=== PATIENT | female | born 1980 | race Caucasian/White ===

== ENCOUNTER 2016-12-27 20:19 | Emergency (ER) | payer MEDICAID, OTHER ==
[~2016-12-27] VITALS: Ht 172.7 cm; Wt 68.0 kg
[~2016-12-27 20:19] MED LIST: IBUP600 PO; PERI8.6T PO; PRENCAP6 PO
[2016-12-27 20:20] VITALS: BP 115/64; PULSE 95; RESP 16; TEMP 98.2; O2SAT 100
[2016-12-27] MEDS ORDERED: PRENATAL VITAMIN PO (22:08)
[2016-12-27 22:13] VITALS: BP 115/64; PULSE 99; RESP 16; O2SAT 100
--- NOTE | 2016-12-27 22:57 | PD ---
HPI Chief Complaint: Neuro Symptoms/ Deficits Time Seen by Provider: 22:49 Travel History International Travel<30 days: No Contact w/Intl Traveler<30days: No Traveled to known affect area: No History of Present Illness HPI The patient is a 36-year-old female who complains of a gradual onset biparietal headache, dizziness and blurred vision for 3 days. The patient states she is 5 weeks . She saw her access registrar and her access registrar referred her to an urgent care center which she went today but the urgent care center referred her to the emergency department. The patient denies any fever, sore throat and has a minimal nonproductive cough. She is not smoke or drink alcohol or use drugs. Her dizziness is not vertigo, it is only lightheadedness. The blurred vision does not double vision but involves seeing colors and scotomata. She had several episodes lasting a second or 2 and then 1 episode lasted for a minute. The patient is G3, P1, A1. PFSH Past Medical History Cardiovascular Problems: Yes (HYPOTENSION) Immunizations Current: Yes Tetanus Vaccination: < 5 Years Influenza Vaccination: Yes ?: : 3 Para: 1 Miscarriage: 1 : 0 Past Surgical History Tonsillectomy: Yes Social History Alcohol Use: No Tobacco Use: No Substance Use: No Allergies-Medications (Allergen,Severity, Reaction): Coded Allergies: Cortisone (Verified Allergy, Severe, Rash, 12/27/16) TOPICAL AND HEADACHE Penicillin (Verified Allergy, Severe, Rash, 12/27/16) AND HEADACHE Reported Meds & Prescriptions Reported Meds & Active Scripts Active Reported [ Vitamin] 1 Tab PO DAILY Review of Systems Except as stated in HPI: all other systems reviewed are Neg Physical Exam Narrative GENERAL: The patient is alert, oriented 3 in no apparent distress. SKIN: Warm and dry. HEAD: Atraumatic. Normocephalic. EYES: Pupils equal and round. No scleral icterus. No injection or drainage. ENT: No nasal bleeding or discharge. Mucous membranes pink and moist. NECK: Trachea midline. No JVD. CARDIOVASCULAR: Regular rate and rhythm. No murmur appreciated. RESPIRATORY: No accessory muscle use. Clear to auscultation. Breath sounds equal bilaterally. GASTROINTESTINAL: Abdomen soft, non-tender, nondistended. Hepatic and splenic margins not palpable. MUSCULOSKELETAL: No obvious deformities. No clubbing. No cyanosis. No edema. NEUROLOGICAL: Awake and alert. No obvious cranial nerve deficits. Motor grossly within normal limits. Normal speech. PSYCHIATRIC: Appropriate mood and affect; insight and judgment normal. Data Data Last Documented VS Vital Signs Date Time Temp Pulse Resp B/P Pulse Ox O2 Delivery O2 Flow Rate FiO2 12/28/16 01:55 96 17 99/51 99 Room Air 12/27/16 20:20 98.2 Orders Complete Blood Count With Diff (12/27/16 22:49) Comprehensive Metabolic Panel (12/27/16 22:49) Urinalysis - C+S If Indicated (12/27/16 22:49) Ecg Monitoring (12/27/16 22:49) Iv Access Insert/Monitor (12/27/16 22:49) Oximetry (12/27/16 22:49) Sodium Chloride 0.9% Flush (Ns Flush) (12/27/16 23:00) Mri Brain W/O Contrast (12/27/16 22:49) Beta Hcg (Quant/Titer) (12/27/16 22:49) Urine Culture (12/27/16 22:53) Labs Laboratory Tests Test 12/27/16 22:53 White Blood Count 7.2 TH/MM3 Red Blood Count 4.30 MIL/MM3 Hemoglobin 12.5 GM/DL Hematocrit 36.8 % Mean Corpuscular Volume 85.4 FL Mean Corpuscular Hemoglobin 29.0 PG Mean Corpuscular Hemoglobin 34.0 % Concent Red Cell Distribution Width 13.6 % Platelet Count 186 TH/MM3 Mean Platelet Volume 10.5 FL Neutrophils (%) (Auto) 54.6 % Lymphocytes (%) (Auto) 29.1 % Monocytes (%) (Auto) 10.7 % Eosinophils (%) (Auto) 4.9 % Basophils (%) (Auto) 0.7 % Neutrophils # (Auto) 3.9 TH/MM3 Lymphocytes # (Auto) 2.1 TH/MM3 Monocytes # (Auto) 0.8 TH/MM3 Eosinophils # (Auto) 0.3 TH/MM3 Basophils # (Auto) 0.1 TH/MM3 CBC Comment DIFF FINAL Differential Comment Urine Color YELLOW Urine Turbidity HAZY Urine pH 5.5 Urine Specific Gibson 1.021 Urine Protein NEG mg/dL Urine Glucose (UA) NEG mg/dL Urine Ketones NEG mg/dL Urine Occult Blood NEG Urine Nitrite NEG Urine Bilirubin NEG Urine Urobilinogen LESS THAN 2.0 MG/DL Urine Leukocyte Esterase TRACE Urine RBC 1 /hpf Urine WBC 1 /hpf Urine Squamous Epithelial 7 /hpf Cells Urine Bacteria RARE /hpf Urine Mucus FEW /lpf Microscopic Urinalysis Comment CATH-CULTURE IND Sodium Level 141 MEQ/L Potassium Level 3.2 MEQ/L Chloride Level 107 MEQ/L Carbon Dioxide Level 25.4 MEQ/L Anion Gap 9 MEQ/L Blood Urea Nitrogen 18 MG/DL Creatinine 0.77 MG/DL Estimat Glomerular Filtration 84 ML/MIN Rate Random Glucose 66 MG/DL Calcium Level 9.3 MG/DL Total Bilirubin 0.3 MG/DL Aspartate Amino Transf 16 U/L (AST/SGOT) Alanine Aminotransferase 23 U/L (ALT/SGPT) Alkaline Phosphatase 61 U/L Total Protein 7.1 GM/DL Albumin 3.7 GM/DL Human Chorionic Gonadotropin, 5694 MIU/ML Quant MDM Medical Decision Making Medical Screen Exam Complete: Yes Emergency Medical Condition: Yes Medical Record Reviewed: Yes Differential Diagnosis Ocular migraine, CVA, hypoglycemia, electrolyte disorder, other metabolic disorder Narrative Course The patient likely has an ocular migraine. There is no evidence of CVA on the MRI. She is to follow-up with her access registrar. Diagnosis Primary Impression: Ocular migraine Additional Instructions: As we discussed, follow-up with your access registrar. The MRI was normal and CVA is very unlikely. Med/Other Pt SpecificInfo: No Change to Meds Disposition: 01 DISCHARGE HOME Condition: Stable Naif Salcedo MD Dec 27, 2016 22:57
[2016-12-27] MEDS ORDERED: SODIUM CHLORIDE 0.9% FLUSH 10 ML FLUSH IVF PRN (23:00)
[2016-12-27 23:07] VITALS: BP 103/56; PULSE 98; RESP 16; O2SAT 100
[2016-12-27 23:27] LABS: AUTOMATED NEUTROPHIL # 3.9 TH/MM3 (1.8-7.7); BASOPHIL # 0.1 TH/MM3 (0-0.2); BASOPHIL % 0.7 % (0.0-2.0); EOSINOPHIL # 0.3 TH/MM3 (0-0.4); EOSINOPHIL % 4.9 % (0.0-4.0); HEMATOCRIT 36.8 % (35.0-46.0); HEMO FLAGS DIFF FINAL; LYMPH % 29.1 % (9.0-44.0); LYMPHOCYTE # 2.1 TH/MM3 (1.0-4.8); MEAN CELL VOLUME 85.4 FL (80.0-100.0); MONO % 10.7 % (0.0-8.0); NEUT % 54.6 % (16.0-70.0); PLATELET COUNT 186 TH/MM3 (150-450); RED CELL DISTRIBUTION WIDTH 13.6 % (11.6-17.2); WHITE BLOOD COUNT 7.2 TH/MM3 (4.0-11.0)
[2016-12-27 23:41] LABS: BACTERIA, URINE RARE /hpf; BLOOD, URINE NEG (NEG); GLUCOSE,URINE NEG (NEG); KETONE, URINE NEG (NEG); MUCUS URINE FEW /lpf (OCC); NITRITE,URINE NEG (NEG); PH, URINE 5.5 (5.0-8.5); SQUAMOUS EPITHELIAL CELL URINE 7 /hpf (0-5); URINE COLOR YELLOW (YELLW/STRAW)
[2016-12-27 23:43] LABS: COMMENT (UR) CATH-CULTURE IND; CULTURE IF INDICATED CATH CULTURE IND
[2016-12-27 23:58] LABS: ANION GAP 9 MEQ/L (5-15); AST (GOT) 16 U/L (15-37); BICARBONATE 25.4 MEQ/L (21.0-32.0); BLOOD UREA NITROGEN 18 MG/DL (7-18); CHLORIDE 107 MEQ/L (98-107); GLOMERULAR FILTRATION RATE 84 ML/MIN (>89); POTASSIUM 3.2 MEQ/L (3.5-5.1); SODIUM (NA) 141 MEQ/L (136-145)
[2016-12-28 00:15] LABS: ALKALINE PHOSPHATASE 61 U/L (45-117); ALT (GPT) 23 U/L (10-53); BETA HCG QUANT 5694 MIU/ML (0-5); TOTAL BILIRUBIN ADULT 0.3 MG/DL (0.2-1.0)
--- NOTE | 2016-12-28 00:30 | RADRPT ---
EXAM DATE/TIME: 12/27/2016 23:57 [facility] COMPARISON: No previous studies available for comparison. INDICATIONS : CVA. MEDICAL HISTORY : None. SURGICAL HISTORY : Tonsillectomy. Knee. ENCOUNTER: Initial ACUITY: 1 day PAIN SCORE: 0/10 LOCATION: cranial TECHNIQUE: Multiplanar, multisequence MRI of the brain was performed without contrast. FINDINGS: CEREBRUM: The ventricles are normal for age. No evidence of midline shift, mass lesion, hemorrhage or acute in farction. No extraaxial fluid collections are seen. The pituitary gland and suprasellar cistern are normal in configuration. WHITE MATTER: No significant signal abnormalities are seen in the white matter. POSTERIOR FOSSA: The cerebellum and brainstem are intact. The 4th ventricle is midline. The cerebellopontine angle is unremarkable. The cerebellar tonsils are normal in position. DIFFUSION IMAGING: No focal areas of restricted diffusion are seen. No evidence of acute infarction. EXTRACRANIAL: The visualized portions of the orbits and paranasal sinuses are unremarkable. CONCLUSION: Normal examination. Fermin Macias Jr., MD on December 28, 2016 at 0:27 Board Certified Radiologist. This report was verified electronically.
[2016-12-28 00:43] VITALS: BP 96/58; PULSE 105; RESP 16; O2SAT 100
[2016-12-28 01:55] VITALS: BP 99/51; PULSE 96; RESP 17; O2SAT 99
[2016-12-28] MEDS ORDERED: CALNTAB PO (22:44)
== END 2016-12-28 03:18 | disposition home or self-care (01) ==
LOC: NEPC 20:19
DX: G43.B0 Ophthalmoplegic migraine, not intractable (principal); B96.89 Other specified bacterial agents as the cause of diseases classified elsewhere; Z3A.01 Less than 8 weeks gestation of pregnancy
CPT/HCPCS: 70551; 80053; 81001; 84702; 85025; 87086

== ENCOUNTER 2017-03-25 13:34 | Emergency (ER) | payer SELFPAY ==
[~2017-03-25 13:34] MED LIST changes: +CALNTAB PO; -IBUP600 PO; -PERI8.6T PO; -PRENCAP6 PO
[2017-03-25 15:09] LABS: BACTERIA, URINE OCC /hpf; BLOOD, URINE NEG (NEG); COMMENT (UR) CULT NOT INDICATED; CULTURE IF INDICATED CULT NOT INDICATED; GLUCOSE,URINE NEG (NEG); KETONE, URINE NEG (NEG); NITRITE,URINE NEG (NEG); SQUAMOUS EPITHELIAL CELL URINE 9 /hpf (0-5); URINE COLOR LIGHT-YELLOW (YELLW/STRAW)
--- NOTE | 2017-03-25 15:37 | PD ---
HPI Chief Complaint Abdominal pain Date Seen: Mar 25, 2017 (Libia Luz MD R2) Travel History International Travel<30 Days: No Contact w/Intl Traveler<30Days: No (Libia Luz MD R2) History of Present Illness HPI Patient is a 36 year old at 17-5/7 weeks gestation who presents today for abdominal pain. The pain started this morning and felt like contractions that were occurring q3-4minutes. The pain has significantly decreased since her arrival in the ED. She denies any vaginal bleeding or discharge. No gush or leaking of fluid. Positive movement. care with Dary Mcgregor. ( Libia Luz MD R2) History Past Medical History Medical History: Denies Significant Hx (Libia Luz MD R2) Obstetric History Obstetric History at full term Spontaneous at 12 weeks gestation (Libia Luz MD R2) Past Surgical History Narrative Surgical Tonsillectomy L knee surgery (Libia Luz MD R2) Family History Narrative Family History Father with prostate cancer (Libia Luz MD R2) Social History Alcohol Use: No Tobacco Use: No Substance Abuse: No (Libia Luz MD R2) Allergies-Medications (Allergen,Severity, Reaction): Coded Allergies: Cortisone (Verified Allergy, Severe, Rash, 12/27/16) TOPICAL AND HEADACHE Penicillin (Verified Allergy, Severe, Rash, 12/27/16) AND HEADACHE Home Meds Reported Medications Vitamin (Calna)1 Tab Tab1 Tab PO DAILY 12/28/16 Review of Systems Except as stated in HPI: all other systems reviewed are Neg General / Constitutional: No: Fever, Chills Eyes: No: Blurred Vision, Visual changes HENT: No: Headaches Cardiovascular: No: Chest Pain or Discomfort Respiratory: No: Short of Breath Gastrointestinal: Abdominal Pain, No: Nausea, Loss of Appetite Genitourinary: No: Pelvic Pain, Discharge, Vaginal Bleeding Musculoskeletal: No: Edema Psychiatric: No: Substance Abuse (Libia Luz MD R2) Physical Exam Narrative GENERAL: Well-nourished, well-developed patient. SKIN: Warm and dry. HEAD: Normocephalic and atraumatic. EYES: No scleral icterus. No injection or drainage. ENT: No nasal drainage noted. Mucous membranes pink. Airway patent. NECK: Supple, trachea midline. No JVD. CARDIOVASCULAR: Regular rate and rhythm without murmurs, gallops, or rubs. RESPIRATORY: Breath sounds equal bilaterally. No accessory muscle use. ABDOMEN/GI: Abdomen soft, mildly tender to palpation in LLQ, bowel sounds present, no rebound, no guarding Gravid to 17 weeks size GENITOURINARY: FHT's: 160's EXTREMITIES: No cyanosis or edema. BACK: Nontender without obvious deformity. No CVA tenderness. NEUROLOGICAL: Awake and alert. Motor and sensory grossly within normal limits. Normal speech. (Libia Luz MD R2) Data Data Vital Signs Reviewed: Yes Orders Vital Signs (Adult) .ON ADMISSION (03/25/17 13:56) ^ Labor Status (03/25/17 13:56) Urinalysis - C+S If Indicated (03/25/17 13:56) Labs Laboratory Tests Test 03/25/17 13:50 Urine Color LIGHT-YELLOW Urine Turbidity HAZY Urine pH 6.0 Urine Specific [place] 1.005 Urine Protein NEG Urine Glucose (UA) NEG Urine Ketones NEG Urine Occult Blood NEG Urine Nitrite NEG Urine Bilirubin NEG Urine Urobilinogen LESS THAN 2.0 Urine Leukocyte Esterase NEG Urine RBC LESS THAN 1 Urine WBC 1 Urine Squamous Epithelial 9 Cells Urine Bacteria OCC Microscopic Urinalysis Comment CULT NOT INDICATED (Libia Luz MD R2) MDM Medical Record Reviewed: Yes Narrative Course / MDM 36 year old at 17-5/7 weeks gestation. 1. IUP- FHT reassuring. 2. Abdominal pain- round ligament vs acute cystitis, will obtain UA. dw Dr. Michelle Addendum: UA wnl Pain improving, likely secondary to round ligament pain. Discharge to home. Follow-up with Dary Mcgregor. (Libia Luz MD R2) Diagnosis Diagnosis: Primary Impression: Round ligament pain Additional Impression: 17 weeks gestation of Disposition: DISCHARGE HOME Condition: Stable Collaborating MD Comments Agree with diagnosis and management. (Tayla Michelle MD) Libia Luz MD R2 Mar 25, 2017 15:37 Tayla Michelle MD Mar 26, 2017 08:31
== END 2017-03-25 15:52 | disposition home or self-care (01) ==
LOC: HOBED 13:34
DX: O26.892 Other specified pregnancy related conditions, second trimester (principal); R10.2 Pelvic and perineal pain; Z3A.17 17 weeks gestation of pregnancy
CPT/HCPCS: 81001; 99282

== ENCOUNTER 2017-04-29 11:43 | Emergency (ER) | payer SELFPAY ==
[~2017-04-29] VITALS: Ht 162.6 cm; Wt 76.2 kg
--- NOTE | 2017-04-29 12:49 | PD ---
HPI Chief Complaint Abdominal pain Date Seen: Apr 29, 2017 Time Seen: 12:15 Travel History International Travel<30 Days: No Contact w/Intl Traveler<30Days: No Known Affected Area: No History of Present Illness HPI Patient is a 36 y/o at 22 weeks and 5 days who presents to OB triage complaining of crampy abdominal pain x1 day. She states that she experienced a severe cramp x 5 min earlier today; now the pain comes and goes. The pain is irregular. She has never experienced this pain before. She denies vaginal bleeding and gush of fluid. She denies nausea/vomiting. She endorses movement. She denies changes in urination; denies increased frequency, burning/ pain with urination and blood in urine. Patient has been told that she has low-laying placenta. She has had a repeat US (3 weeks ago) since but no comment was made about location of placenta. She has received regular care. She denies any complications during this . Para: 1 : 3 Miscarriage: 1 (Passed naturally ) History Past Medical History Medical History: Denies Significant Hx Obstetric History Obstetric History G1 miscarriage, passed naturally G2 vaginal; full-term; daughter 1 1/2 years old G3 current; no complications Past Surgical History Narrative Surgical Left knee Tonsillectomy Family History Family History: Negative Social History Alcohol Use: No Tobacco Use: No (quit x5 years ago; used to smoke 1 pack/day x 10 years ) Substance Abuse: No Allergies-Medications (Allergen,Severity, Reaction): Coded Allergies: Cortisone (Verified Allergy, Severe, Rash, 04/29/17) TOPICAL AND HEADACHE Penicillin (Verified Allergy, Severe, Rash, 04/29/17) AND HEADACHE Home Meds Reported Medications Vitamin (Calna)1 Tab Tab1 Tab PO DAILY 12/28/16 Review of Systems General / Constitutional: No: Fever, Chills HENT: No: Headaches Cardiovascular: No: Irregular Rhythm, Chest Pain or Discomfort, Palpitations, Edema Respiratory: No: Short of Breath Gastrointestinal: Abdominal Pain, No: Nausea, Vomiting Genitourinary: No: Urgency, Frequency, Hematuria Musculoskeletal: No: Weakness Physical Exam Narrative GENERAL: Well-nourished, well-developed patient. SKIN: Warm and dry. HEAD: Normocephalic and atraumatic. EYES: No scleral icterus. No injection or drainage. ENT: No nasal drainage noted. Mucous membranes pink. Airway patent. NECK: Supple, trachea midline. No JVD. CARDIOVASCULAR: Regular rate and rhythm without murmurs, gallops, or rubs. RESPIRATORY: Breath sounds equal bilaterally. No accessory muscle use. ABDOMEN/GI: Abdomen soft, non-tender, bowel sounds present, no rebound, no guarding Gravid to 22 weeks size GENITOURINARY: External Genitalia: intact and normal in appearance Cervix: Posterior Dilatation: 0 Effacement: 0 Membranes: Intact Uterine Contractions: None FHT's: Category: 1 Baseline: 140 Reactive: Reactive Variability: Moderate Decels: None EXTREMITIES: No cyanosis or edema. BACK: Nontender without obvious deformity. No CVA tenderness. NEUROLOGICAL: Awake and alert. Motor and sensory grossly within normal limits. Five out of 5 muscle strength in all muscle groups. Normal speech. Data Data Vital Signs Reviewed: Yes Orders Vital Signs (Adult) .ON ADMISSION (04/29/17 12:32) ^ Labor Status (04/29/17 12:32) Urinalysis - C+S If Indicated (04/29/17 12:32) MDM Medical Record Reviewed: Yes Plan Patient is a 36 y/o at 22 weeks and 5 days who presents to OB triage complaining of crampy abdominal pain x1 day. * Urinalysis pending at this time. We will treat the urine according to findings. Will call patient with results and plan for management. * Be discharged home to bedrest use a heating pad or hot bath, by mouth Tylenol when necessary d/w Dr. Oconnell, Attending Diagnosis Diagnosis: Primary Impression: Abdominal pain Disposition: DISCHARGE HOME Condition: Good Brandy Cabrales MD R1 Apr 29, 2017 12:49
--- NOTE | 2017-04-29 13:03 | PD ---
History of Present Illness Date Seen: Apr 29, 2017 History of Present Illness Patient is 36-year-old white female at 22 weeks patient Dary Mcgregor presents complaining of abdominal pain earlier today. Prior to that She was fine has been good. Denies bleeding or ruptured membranes. Baby is active. heart rates within normal limits for 22 weeks no contractions seen. Patient's cervix is closed and posterior. Urinalysis negative Be discharged home to bedrest use a heating pad or hot bath, by mouth Tylenol when necessary Nilson Oconnell II, MD Apr 29, 2017 13:03 Nilson Oconnell II, MD Apr 29, 2017 13:03
[2017-04-29 13:34] LABS: BACTERIA, URINE RARE /hpf; BLOOD, URINE NEG (NEG); COMMENT (UR) CULT NOT INDICATED; CULTURE IF INDICATED CULT NOT INDICATED; GLUCOSE,URINE NEG (NEG); KETONE, URINE NEG (NEG); NITRITE,URINE NEG (NEG); SQUAMOUS EPITHELIAL CELL URINE 5 /hpf (0-5); URINE COLOR LIGHT-YELLOW (YELLW/STRAW)
== END 2017-04-29 16:38 | disposition home or self-care (01) ==
LOC: HOBED 11:43
DX: O26.892 Other specified pregnancy related conditions, second trimester (principal); R10.9 Unspecified abdominal pain; Z3A.22 22 weeks gestation of pregnancy; Z88.0 Allergy status to penicillin; Z87.891 Personal history of nicotine dependence
CPT/HCPCS: 81001; 99284

== ENCOUNTER 2017-07-19 16:27 | Emergency (ER) | payer SELFPAY ==
--- NOTE | 2017-07-19 17:08 | PD ---
HPI Chief Complaint Right lower quadrant abdominal pain Date Seen: Jul 19, 2017 Time Seen: 17:04 Travel History International Travel<30 Days: No Contact w/Intl Traveler<30Days: No Known Affected Area: No History of Present Illness HPI 37-year-old who is at 34 weeks 2 days complains of right lower quadrant pain. Patient has had intermittent left lower quadrant pain for 2 weeks but this morning that she started experiencing pain in the right lower quadrant. Patient denies contractions, vaginal bleeding, vaginal discharge. Patient is seeing Dary Mcgregor for care and denies any complications. Patient has had a previous spontaneous vaginal delivery at term. Weeks Gestation: 34 Para: 1 : 3 Miscarriage: 1 History Obstetric History Obstetric History Spontaneous vaginal delivery Past Surgical History Narrative Surgical Knee surgery Tonsillectomy Family History Family History: Negative Social History Alcohol Use: No Tobacco Use: No Substance Abuse: No Allergies-Medications (Allergen,Severity, Reaction): Coded Allergies: cortisone (Unverified Allergy, Severe, Rash, 05/22/17) TOPICAL AND HEADACHE penicillin G (Unverified Allergy, Severe, Rash, 05/22/17) AND HEADACHE Home Meds Reported Medications Vitamin (Calna) 1 Tab Tab, 1 TAB PO DAILY 12/28/16 Review of Systems Except as stated in HPI: all other systems reviewed are Neg Physical Exam Narrative GENERAL: Well-nourished, well-developed patient. SKIN: Warm and dry. HEAD: Normocephalic and atraumatic. EYES: No scleral icterus. No injection or drainage. ENT: No nasal drainage noted. Mucous membranes pink. Airway patent. NECK: Supple, trachea midline. No JVD. CARDIOVASCULAR: Regular rate and rhythm without murmurs, gallops, or rubs. RESPIRATORY: Breath sounds equal bilaterally. No accessory muscle use. ABDOMEN/GI: Abdomen soft, non-tender, bowel sounds present, no rebound, no guarding Gravid to [-34] weeks size Fundal Height: [-] GENITOURINARY: External Genitalia: intact and normal in appearance BUS glands: [Normal-] Cervix: [Posterior-] Dilatation: [Closed-] Effacement: [Long-] Station: [-High] Presentation: [Vertex-] Membranes: [intact] Uterine Contractions: [Single contraction noted-] FHT's: Category: [-1] Baseline: [-140] Reactive: [Moderate-] Variability: [Moderate-] Decels: [-Absent] EXTREMITIES: No cyanosis or edema. BACK: Nontender without obvious deformity. No CVA tenderness. NEUROLOGICAL: Awake and alert. Motor and sensory grossly within normal limits. Five out of 5 muscle strength in all muscle groups. Normal speech. Data Data Vital Signs Reviewed: Yes MDM Medical Record Reviewed: Yes Plan 37-year-old at 34 weeks gestation with round ligament pain consistent with discomforts of Discharge home with follow-up to her OB provider Diagnosis Diagnosis: Primary Impression: 34 weeks gestation of Additional Impression: Pain of round ligament affecting , antepartum Disposition: 01 DISCHARGE HOME Tayla Michelle MD Jul 19, 2017 17:08
== END 2017-07-19 17:14 | disposition home or self-care (01) ==
LOC: HOBED 16:27
DX: O26.93 Pregnancy related conditions, unspecified, third trimester (principal); R10.2 Pelvic and perineal pain; Z3A.34 34 weeks gestation of pregnancy
CPT/HCPCS: 59025

== ENCOUNTER 2017-08-22 18:37 | Emergency (ER) | payer SELFPAY ==
--- NOTE | 2017-08-22 19:33 | PD ---
HPI Chief Complaint Contractions Travel History International Travel<30 Days: No Contact w/Intl Traveler<30Days: No Known Affected Area: No History of Present Illness HPI 37-year-old 011, IUP at 39.12 care uncomplicated except by history of hypotension per her report The patient presented complaining of the onset of contraction pain yesterday. She reports that she had irregular contractions all day yesterday but was able to sleep and get a good night's rest last night. She reports her contractions increased in intensity and frequency about noon today to about every 5 minutes prior to her arrival. She reports her contractions have spaced out since arriving. She reports good movement. She denies any leaking of fluid or vaginal bleeding. She has no other complaints today. Weeks Gestation: 39 Para: 1 : 3 History Past Medical History Narrative Medical Hypotension Obstetric History Obstetric History 011 1 SAB 1 Past Surgical History Narrative Surgical Tonsillectomy Family History Narrative Family History Hypertension Social History Alcohol Use: No Tobacco Use: No Substance Abuse: No Allergies-Medications (Allergen,Severity, Reaction): Coded Allergies: cortisone (Unverified Allergy, Severe, Rash, 05/22/17) TOPICAL AND HEADACHE penicillin G (Unverified Allergy, Severe, Rash, 05/22/17) AND HEADACHE Home Meds Reported Medications Vitamin (Calna) 1 Tab Tab, 1 TAB PO DAILY 12/28/16 Review of Systems Except as stated in HPI: all other systems reviewed are Neg Physical Exam Narrative GENERAL: Well-nourished, well-developed patient. SKIN: Warm and dry. HEAD: Normocephalic and atraumatic. EYES: No scleral icterus. No injection or drainage. ENT: No nasal drainage noted. Mucous membranes pink. Airway patent. NECK: Supple, trachea midline. No JVD. CARDIOVASCULAR: Regular rate and rhythm without murmurs, gallops, or rubs. RESPIRATORY: Breath sounds equal bilaterally. No accessory muscle use. BREASTS: deferred ABDOMEN/GI: Abdomen soft, non-tender, bowel sounds present, no rebound, no guarding Gravid to [-] weeks size Fundal Height: [-] GENITOURINARY: External Genitalia: intact and normal in appearance. Normal BUS. No cervical or vaginal masses. Grossly normal rugae. Physiologic discharge. SVE 2/thick/high/posterior FHT's: heart tones in the 120s with moderate long-term variability, good accelerations, no decelerations noted with a reactive NST and category 1 heart rate tracing. EXTREMITIES: No cyanosis or edema. BACK: Nontender without obvious deformity. No CVA tenderness. NEUROLOGICAL: Awake and alert. Motor and sensory grossly within normal limits. Five out of 5 muscle strength in all muscle groups. Normal speech. Psychiatric: Grossly normal memory and affect Musculoskeletal: Grossly normal range of motion, gait, muscle strength MDM Plan Assessment/plan: 1. IUP at 39 weeks 2. Contractions at term: No evidence of active labor, strict labor precautions are given 3. well-being: Reassuring testing with reactive NST, FHR reassuring and appropriate for gestational age. kick counts daily 4. History of hypotension 5. Follow-up with primary OB in 2-3 days or sooner if needed Diagnosis Diagnosis: Primary Impression: 39 weeks gestation of Additional Impression: False labor Disposition: 01 DISCHARGE HOME Condition: Carmen Patton MD Aug 22, 2017 19:33
== END 2017-08-23 02:41 | disposition home or self-care (01) ==
LOC: HOBED 18:37
DX: O47.1 False labor at or after 37 completed weeks of gestation (principal); I95.9 Hypotension, unspecified; Z88.0 Allergy status to penicillin; Z88.8 Allergy status to other drugs, medicaments and biological substances; Z3A.39 39 weeks gestation of pregnancy
CPT/HCPCS: 59025

== ENCOUNTER 2017-08-23 05:45 | Inpatient (IN) | payer SELFPAY ==
[2017-08-23] VITALS (107 sets, daily range): BP systolic 75–135; BP diastolic 44–78; PULSE 60–135; RESP 16–20; TEMP 97.4–99.6; O2SAT 97–100
--- NOTE | 2017-08-23 06:54 | PD ---
History of Present Illness History of Present Illness HPI Chief Complaint Contractions Travel History International Travel<30 Days: No Contact w/Intl Traveler<30Days: No Known Affected Area: No History of Present Illness HPI 37-year-old 011, IUP at 39.2 care uncomplicated except by history of hypotension per her report With the patient was seen in the OB ED and discharged last night. At that time The patient presented complaining of the onset of contraction pain 2 days ago. She reported that she had irregular contractions all day yesterday but was able to sleep and get a good night's the prior night. She reports her contractions increased in intensity and frequency about noon yesterday to about every 5 minutes prior to her arrival. She reported her contractions had spaced out since arriving. She reported good movement. She denieed any leaking of fluid or vaginal bleeding. She had no other complaints today. The patient returns reporting that retractions started to increase in intensity and frequency again about 2 AM. She denies any leaking of fluid or vaginal bleeding. She reports good movement. She reports they are every 5-6 minutes. Weeks Gestation: 39 Para: 1 : 3 History Past Medical History Narrative Medical Hypotension Obstetric History Obstetric History 011 1 SAB 1 Past Surgical History Narrative Surgical Tonsillectomy Family History Narrative Family History Hypertension Social History Alcohol Use: No Tobacco Use: No Substance Abuse: No Allergies-Medications (Allergen,Severity, Reaction): Coded Allergies: cortisone (Unverified Allergy, Severe, Rash, 05/22/17) TOPICAL AND HEADACHE penicillin G (Unverified Allergy, Severe, Rash, 05/22/17) AND HEADACHE Home Meds Reported Medications Vitamin (Calna) 1 Tab Tab, 1 TAB PO DAILY 12/28/16 Review of Systems Except as stated in HPI: all other systems reviewed are Neg Physical Exam Narrative GENERAL: Well-nourished, well-developed patient. SKIN: Warm and dry. HEAD: Normocephalic and atraumatic. EYES: No scleral icterus. No injection or drainage. ENT: No nasal drainage noted. Mucous membranes pink. Airway patent. NECK: Supple, trachea midline. No JVD. CARDIOVASCULAR: Regular rate and rhythm without murmurs, gallops, or rubs. RESPIRATORY: Breath sounds equal bilaterally. No accessory muscle use. BREASTS: deferred ABDOMEN/GI: Abdomen soft, non-tender, bowel sounds present, no rebound, no guarding Gravid GENITOURINARY: External Genitalia: intact and normal in appearance. Normal BUS. No cervical or vaginal masses. Grossly normal rugae. Physiologic discharge. SVE 2/thick/high/posterior per RN, unchanged from prior but patient very uncomfortable. Repeat exam . FHT's: heart tones in the 120s with moderate long-term variability, good accelerations, no decelerations noted with a reactive NST and category 1 heart rate tracing. EXTREMITIES: No cyanosis or edema. BACK: Nontender without obvious deformity. No CVA tenderness. NEUROLOGICAL: Awake and alert. Motor and sensory grossly within normal limits. Five out of 5 muscle strength in all muscle groups. Normal speech. Psychiatric: Grossly normal memory and affect Musculoskeletal: Grossly normal range of motion, gait, muscle strength MDM Plan Assessment/plan: 1. IUP at 39 weeks 2. Contractions at term: Will admit for active labor at term discussed risks of as as well as risks and indications for delivery. All patient' s questions were answered. 3. well-being: Reassuring testing with reactive NST, FHR reassuring and appropriate for gestational age. kick counts daily 4. History of hypotension 5. Obtain records GBS status Carmen Phillips MD Aug 23, 2017 06:54
--- NOTE | 2017-08-23 08:05 | HHI.HP ---
History & Physical H&P Patient Name: Roseann Arreola Unit Number: [id number] Date of : 1980 Patient Status: Registered Emergency Room Attending Doctor: Carmen Phillips MD HPI History of Present Illness History of Present Illness HPI Chief Complaint Contractions Travel History International Travel<30 Days: No Contact w/Intl Traveler<30Days: No Known Affected Area: No History of Present Illness HPI 37-year-old 011, IUP at 39.2 care uncomplicated except by history of hypotension per her report With the patient was seen in the OB ED and discharged last night. At that time The patient presented complaining of the onset of contraction pain 2 days ago. She reported that she had irregular contractions all day yesterday but was able to sleep and get a good night's the prior night. She reports her contractions increased in intensity and frequency about noon yesterday to about every 5 minutes prior to her arrival. She reported her contractions had spaced out since arriving. She reported good movement. She denieed any leaking of fluid or vaginal bleeding. She had no other complaints today. The patient returns reporting that retractions started to increase in intensity and frequency again about 2 AM. She denies any leaking of fluid or vaginal bleeding. She reports good movement. She reports they are every 5-6 minutes. Weeks Gestation: 39 Para: 1 : 3 History Past Medical History Narrative Medical Hypotension Obstetric History Obstetric History 011 1 SAB 1 Past Surgical History Narrative Surgical Tonsillectomy Family History Narrative Family History Hypertension Social History Alcohol Use: No Tobacco Use: No Substance Abuse: No Allergies-Medications (Allergen,Severity, Reaction): Coded Allergies: cortisone (Unverified Allergy, Severe, Rash, 05/22/17) TOPICAL AND HEADACHE penicillin G (Unverified Allergy, Severe, Rash, 05/22/17) AND HEADACHE Home Meds Reported Medications Vitamin (Calna) 1 Tab Tab, 1 TAB PO DAILY 12/28/16 Review of Systems Except as stated in HPI: all other systems reviewed are Neg Physical Exam Narrative GENERAL: Well-nourished, well-developed patient. SKIN: Warm and dry. HEAD: Normocephalic and atraumatic. EYES: No scleral icterus. No injection or drainage. ENT: No nasal drainage noted. Mucous membranes pink. Airway patent. NECK: Supple, trachea midline. No JVD. CARDIOVASCULAR: Regular rate and rhythm without murmurs, gallops, or rubs. RESPIRATORY: Breath sounds equal bilaterally. No accessory muscle use. BREASTS: deferred ABDOMEN/GI: Abdomen soft, non-tender, bowel sounds present, no rebound, no guarding Gravid GENITOURINARY: External Genitalia: intact and normal in appearance. Normal BUS. No cervical or vaginal masses. Grossly normal rugae. Physiologic discharge. SVE 2/thick/high/posterior per RN, unchanged from prior but patient very uncomfortable. Repeat exam . FHT's: heart tones in the 120s with moderate long-term variability, good accelerations, no decelerations noted with a reactive NST and category 1 heart rate tracing. EXTREMITIES: No cyanosis or edema. BACK: Nontender without obvious deformity. No CVA tenderness. NEUROLOGICAL: Awake and alert. Motor and sensory grossly within normal limits. Five out of 5 muscle strength in all muscle groups. Normal speech. Psychiatric: Grossly normal memory and affect Musculoskeletal: Grossly normal range of motion, gait, muscle strength MDM Plan Assessment/plan: 1. IUP at 39 weeks 2. Contractions at term: Will admit for active labor at term discussed risks of as as well as risks and indications for delivery. All patient' s questions were answered. 3. well-being: Reassuring testing with reactive NST, FHR reassuring and appropriate for gestational age. kick counts daily 4. History of hypotension 5. GBS neg Carmen Phillips MD Aug 23, 2017 06:54 Carmen Phillips MD Aug 23, 2017 08:05
[2017-08-23] MEDS ORDERED: CITRIC ACID-SODIUM CITRATE LIQ 30 ML UDC PO SCH (08:15)
[2017-08-23] MEDS ORDERED: SODIUM CHLORID 0.9% 500 ML INJ 500 ML IV PRN (08:15)
[2017-08-23] MEDS ORDERED: LIDOCAINE HCL 1% 50 ML VIAL I-DERMAL PRN (08:15)
[2017-08-23] MEDS ORDERED: LIDOCAINE HCL 1% 50 ML VIAL INFIL PRN (08:15)
[2017-08-23] MEDS ORDERED: MINERAL OIL 10 ML VIAL TOPICAL PRN (08:15)
[2017-08-23] MEDS ORDERED: fentaNYL 2MCG-BUPIV 0.125% INJ 100 ML ONE ×2 (08:50→15:07)
[2017-08-23] MEDS ORDERED: ePHEDrine/NS 25 MG/5 ML SYR ONE (08:51)
[2017-08-23 08:56] LABS: AUTOMATED NEUTROPHIL # 7.5 TH/MM3 (1.8-7.7); BASOPHIL % 0.3 % (0.0-2.0); EOSINOPHIL # 0.1 TH/MM3 (0-0.4); EOSINOPHIL % 1.4 % (0.0-4.0); HEMATOCRIT 39.2 % (35.0-46.0); HEMO FLAGS DIFF FINAL; LYMPH % 15.7 % (9.0-44.0); LYMPHOCYTE # 1.6 TH/MM3 (1.0-4.8); MEAN CELL VOLUME 86.4 FL (80.0-100.0); MEAN CORPUSCULAR HEMOGLOBIN 28.7 PG (27.0-34.0); MEAN CORPUSCULAR HGB CONC 33.2 % (32.0-36.0); MONO % 7.9 % (0.0-8.0); NEUT % 74.7 % (16.0-70.0); PLATELET COUNT 163 TH/MM3 (150-450); RED BLOOD COUNT 4.53 MIL/MM3 (4.00-5.30); RED CELL DISTRIBUTION WIDTH 14.5 % (11.6-17.2)
[2017-08-23 08:57] LABS: BLOOD, URINE MOD (NEG); GLUCOSE,URINE NEG (NEG); KETONE, URINE NEG (NEG); NITRITE,URINE NEG (NEG); PH, URINE 6.5 (5.0-8.5); URINE COLOR LIGHT-YELLOW (YELLW/STRAW)
[2017-08-23] MEDS ORDERED: SODIUM CHLOR 0.9% 1000 ML INJ 1,000 ML IV PRN (09:00)
[2017-08-23] MEDS ORDERED: LACTATED RINGER'S 1000 ML INJ 1,000 ML IV PRN (09:00)
[2017-08-23] MEDS ORDERED: OXYTOCIN 30 UNITS-500ML PREMIX 500 ML IV ONE (09:00)
[2017-08-23] MEDS: LACTATED RINGER'S 1000 ML INJ 1,000 ML IV SCH ×4 (09:04→13:04)
[2017-08-23 09:09] LABS: BACTERIA, URINE FEW /hpf; COMMENT (UR) CULT NOT INDICATED; CULTURE IF INDICATED CULT NOT INDICATED
--- NOTE | 2017-08-23 10:34 | HHI.PR ---
Subjective Remarks Came to room to assist RN with SVE. SVE 5/80/-2 with reassuring FHR. Patient had an approximately 3 minute deceleration to 60s-90s during the examination, no funic cord noted. SROM during examination, with internal monitors placed after consent obtained. FHR return to baseline without further decels at this time. Objective Vital Signs Date Time Temp Pulse Resp B/P (MAP) Pulse Ox O2 Delivery O2 Flow Rate FiO2 08/23/17 09:52 18 Result Diagram: 08/23/17 0835 Carmen Phillips MD Aug 23, 2017 10:34
[2017-08-23] MEDS ORDERED: OXYTOCIN 30 UNITS-500ML PREMIX 500 ML IV SCH ×2 (11:30→15:30)
--- NOTE | 2017-08-23 15:26 | PD.OB.DELI ---
Weeks gestation: 39 Gest age assessed date: Aug 23, 2017 Gest age assessed time: 15:00 Pt started active labor?: Yes Active labor start date: Aug 23, 2017 Active labor start time: 08:00 Medical induction of labor?: Yes Medical induction start date: Aug 23, 2017 Medical induction start time: 11:30 Artificial rupture of membrane: Yes Artificial ROM date: Aug 23, 2017 Artifical ROM time: 10:22 Anesthesia: Epidural Episiotomy: None Vaginal Delivery: Normal Presentation: Occiput anterior Nuchal Cord: None Delayed cord clamping (45 sec): Yes Infant: Female Delivery date: Aug 23, 2017 Delivery time: 15:13 One Minute : 8 Five Minute : 9 Weight: 3200 grams Placenta: Spontaneous delivery, Intact, 3 vessel cord Laceration: No lacerations Estimated blood loss: 150 mL Additional Information Head delivered by maternal effort. No nuchal cord appreciated. Anterior shoulder delivered without complications. Uneventful delivery with no lacerations. Guido Workman MD R1 Aug 23, 2017 15:26
[2017-08-23] MEDS ORDERED: ACETAMINOPHEN 325 MG TAB PO PRN (15:30)
[2017-08-23] MEDS ORDERED: oxyCODONE/ACETAMINOPHEN 5 MG/325 MG TAB PO PRN (15:30)
[2017-08-23] MEDS ORDERED: WITCH HAZEL 50%/GLYCERIN 12.5% 40 PAD JAR TOPICAL PRN (15:30)
[2017-08-23] MEDS ORDERED: BENZOCAINE 20% TOPICAL SPRAY 60 ML CAN TOPICAL PRN (15:30)
[2017-08-23] MEDS ORDERED: ZOLPIDEM TARTRATE 5 MG TAB PO PRN (15:30)
[2017-08-23] MEDS ORDERED: SODIUM CHLORIDE 0.9% FLUSH 10 ML FLUSH IV FLUSH PRN (15:30)
[2017-08-23] MEDS ORDERED: ALUMINUM/MAGNESIUM/SIMETH 30 ML CUP PO PRN (15:30)
[2017-08-23] MEDS ORDERED: ONDANSETRON ODT 4 MG TAB PO PRN (15:30)
[2017-08-23] MEDS ORDERED: MEASLES, MUMPS, RUBELLA VACCINE 0.5 ML VIAL SQ ONE (16:00)
[2017-08-23] MEDS ORDERED: DIPHTH/TETANUS/ACEL PERTUSSIS (BOOSTER) 0.5 ML VIAL/PFS IM ONE (16:00)
[2017-08-23] MEDS: IBUPROFEN 800 MG TAB PO PRN (17:23)
[2017-08-23] MEDS ORDERED: SODIUM CHLORIDE 0.9% FLUSH 10 ML FLUSH IV FLUSH SCH (21:00)
[2017-08-23] MEDS: oxyCODONE/ACETAMINOPHEN 5 MG/325 MG TAB PO PRN (23:24)
[2017-08-23] MEDS: DOCUSATE SODIUM 50 MG/SENNA 8.6 MG TAB PO PRN (23:24)
[2017-08-24] MEDS: IBUPROFEN 800 MG TAB PO PRN ×3 (01:17→19:31)
--- NOTE | 2017-08-24 07:58 | HHI.OB ---
Subjective Post Day: 1 Remarks day #1 AFVSS overnight. Decreased lochia. Denies dysuria. No breast tenderness. She is feeding the baby via breast. Appetite good. No nausea or vomiting. Ambulating well. Denies calf pain or shortness of breath. Otherwise, she is doing well this morning and has no other complaints. Objective Vitals/I&O Vital Signs Date Time Temp Pulse Resp B/P (MAP) Pulse Ox O2 Delivery O2 Flow Rate FiO2 08/23/17 19:45 98.3 103 20 97 08/23/17 19:45 93/62 (72) 08/23/17 17:17 120/59 (79) 08/23/17 17:17 97.4 89 18 99 08/23/17 16:40 16 08/23/17 16:30 97 116/71 (86) 08/23/17 16:15 93 113/74 (87) 08/23/17 16:10 16 08/23/17 16:01 103 111/74 (86) 08/23/17 15:55 106 18 113/73 (86) 08/23/17 15:40 99.3 18 08/23/17 15:35 113 08/23/17 15:30 130 08/23/17 15:30 113 107/68 (81) 08/23/17 15:25 18 08/23/17 15:25 115 08/23/17 15:20 122 08/23/17 15:15 125 101/74 (83) 08/23/17 15:10 60 08/23/17 15:05 117 08/23/17 15:00 125 91/48 (62) 08/23/17 15:00 98.6 08/23/17 15:00 135 08/23/17 14:55 114 08/23/17 14:50 105 08/23/17 14:45 110 08/23/17 14:45 103 100/69 (79) 08/23/17 14:40 104 08/23/17 14:35 106 08/23/17 14:30 99 08/23/17 14:30 107 96/68 (77) 08/23/17 14:30 18 08/23/17 14:25 99 08/23/17 14:20 103 08/23/17 14:15 112 08/23/17 14:15 105 94/71 (79) 08/23/17 14:10 106 08/23/17 14:05 97 08/23/17 14:01 104 104/68 (80) 08/23/17 14:00 18 08/23/17 14:00 102 08/23/17 13:55 104 08/23/17 13:50 104 08/23/17 13:45 99 109/76 (87) 08/23/17 13:45 95 08/23/17 13:40 107 08/23/17 13:35 103 08/23/17 13:31 99 109/49 (69) 08/23/17 13:30 103 08/23/17 13:30 18 08/23/17 13:25 97 08/23/17 13:20 95 08/23/17 13:15 101 112/76 (88) 08/23/17 13:15 97 08/23/17 13:10 103 08/23/17 13:05 101 08/23/17 13:01 99.6 08/23/17 13:00 106 114/74 (87) 08/23/17 13:00 93 08/23/17 12:55 86 100 08/23/17 12:50 91 08/23/17 12:50 100 08/23/17 12:45 99 08/23/17 12:45 93 08/23/17 12:45 93 95/63 (74) 08/23/17 12:40 90 08/23/17 12:35 87 08/23/17 12:31 93 96/58 (71) 08/23/17 12:30 89 08/23/17 12:30 16 08/23/17 12:25 89 08/23/17 12:20 85 08/23/17 12:15 83 08/23/17 12:15 81 93/52 (66) 08/23/17 12:10 93 08/23/17 12:05 80 08/23/17 12:00 82 08/23/17 12:00 86 95/51 (66) 08/23/17 12:00 18 08/23/17 11:55 78 08/23/17 11:50 80 08/23/17 11:45 87 95/46 (62) 08/23/17 11:45 77 08/23/17 11:40 90 08/23/17 11:35 81 08/23/17 11:30 98.0 16 08/23/17 11:30 84 08/23/17 11:30 90 97/54 (68) 08/23/17 11:25 85 08/23/17 11:20 100 08/23/17 11:15 100 110/73 (85) 08/23/17 11:15 95 08/23/17 11:10 100 08/23/17 11:05 100 08/23/17 11:00 16 08/23/17 11:00 96 106/71 (83) 08/23/17 11:00 93 08/23/17 10:55 90 08/23/17 10:50 102 08/23/17 10:45 96 110/71 (84) 08/23/17 10:45 93 08/23/17 10:40 96 08/23/17 10:35 88 08/23/17 10:31 100 90/51 (64) 08/23/17 10:30 90 08/23/17 10:30 18 08/23/17 10:25 99 08/23/17 10:20 94 08/23/17 10:15 93 08/23/17 10:15 99 123/72 (89) 08/23/17 10:10 104 08/23/17 10:05 108 08/23/17 10:01 101 105/64 (78) 08/23/17 10:00 96 08/23/17 10:00 98 91/48 (62) 08/23/17 10:00 97.9 08/23/17 09:57 99 123/68 (86) 08/23/17 09:55 102 08/23/17 09:54 98 107/68 (81) 08/23/17 09:52 18 08/23/17 09:51 105 113/70 (84) 08/23/17 09:50 108 08/23/17 09:48 106 112/66 (81) 08/23/17 09:45 101 114/68 (83) 08/23/17 09:45 106 08/23/17 09:42 113 116/64 (81) 08/23/17 09:40 108 08/23/17 09:39 114 115/70 (85) 08/23/17 09:37 131 135/74 (94) 08/23/17 09:35 98 08/23/17 09:33 88 116/75 (89) 08/23/17 09:32 94 89/44 (59) 08/23/17 09:31 98 75/52 (60) 08/23/17 09:30 96 08/23/17 09:30 20 08/23/17 09:27 91 104/61 (75) 08/23/17 09:25 94 08/23/17 09:24 118/65 (82) 08/23/17 09:21 85 104/72 (83) 08/23/17 09:20 96 08/23/17 09:19 91 109/78 (88) 08/23/17 09:07 80 110/70 (83) 08/23/17 09:00 18 Objective Remarks GENERAL: Well-nourished, well-developed patient. CARDIOVASCULAR: Regular rate and rhythm without murmurs, gallops, or rubs. RESPIRATORY: Breath sounds equal bilaterally. No accessory muscle use. ABDOMEN/GI: Abdomen soft, non-tender. Fundus: Firm, non-tender at umbilicus. GENITOURINARY: Light to moderate bleeding. EXTREMITIES: No cyanosis or edema, non-tender, without signs of DVT. Medications and IVs Current Medications Medications (Trade) Dose Ordered Sig/Eileen Route Start Time Stop Time Status Last Admin Oxytocin 500 ml @ 0 mls/hr TITRATE IV 08/23/17 11:30 08/23/17 13:04 (NS Flush) 2 ml BID IV FLUSH 08/23/17 21:00 (NS Flush) 2 ml UNSCH PRN IV FLUSH 08/23/17 15:30 (Tylenol) 650 mg Q4H PRN PO 08/23/17 15:30 (Motrin) 800 mg Q8H PRN PO 08/23/17 15:30 08/24/17 01:17 (Percocet 5-325 Mg) 1 tab Q4H PRN PO 08/23/17 15:30 08/23/17 23:24 (Percocet 5-325 Mg) 2 tab Q4H PRN PO 08/23/17 15:30 (Americaine 20% Top Spr) 1 spray Q4H PRN TOPICAL 08/23/17 15:30 08/23/17 17:23 (Tucks Pads) 1 applic QID PRN TOPICAL 08/23/17 15:30 08/23/17 17:23 (Viji-Colace) 2 tab Q12H PRN PO 08/23/17 15:30 08/23/17 23:24 (Ambien) 5 mg HS PRN PO 08/23/17 15:30 (Mag-Al Plus Susp Liq) 15 ml Q8H PRN PO 08/23/17 15:30 (Zofran Odt) 4 mg Q6H PRN PO 08/23/17 15:30 08/23/17 17:15 Assessment/Plan Assessment and Plan 37 y/o female who is day one s/p -Continue routine care. -Percocet and Motrin PRN pain. -Encouraged OOB. Advised pelvic rest for 6 wks. -Re: ctrl, she would like to continue considering her options. -D/c likely tomorrow. wdw Jesus Saleh MD R1 Aug 24, 2017 07:58
[2017-08-24 08:13] VITALS: BP 103/68; PULSE 76; RESP 18; TEMP 98.2; O2SAT 98
[2017-08-24] MEDS: oxyCODONE/ACETAMINOPHEN 5 MG/325 MG TAB PO PRN ×3 (08:48→19:32)
[2017-08-24] MEDS: DOCUSATE SODIUM 50 MG/SENNA 8.6 MG TAB PO PRN (14:20)
[2017-08-24] MEDS: HYDROCORTISONE/PRAMOXINE RECTAL FOAM 10 GM CAN RECTAL PRN (19:32)
[2017-08-24 20:00] VITALS: BP 81/47; PULSE 67; RESP 20; TEMP 97.4; O2SAT 98
[2017-08-25] MEDS: oxyCODONE/ACETAMINOPHEN 5 MG/325 MG TAB PO PRN ×2 (00:30→06:20)
[2017-08-25] MEDS: HYDROCORTISONE/PRAMOXINE RECTAL FOAM 10 GM CAN RECTAL PRN (06:20)
[2017-08-25] MEDS: IBUPROFEN 800 MG TAB PO PRN (07:02)
[2017-08-25] MEDS ORDERED: IBUP1TAB7 PO (08:19)
[2017-08-25] MEDS ORDERED: PERI PO (08:19)
--- NOTE | 2017-08-25 08:20 | HHI.DCPOC ---
Discharge Care Plan Diagnosis: (1) (spontaneous vaginal delivery) Report Symptoms to Your Doctor -Temperature above 100.5 degrees -Redness, of incision or excessive or foul smelling drainage -Unusual pain or calf pain -Increased vaginal bleeding -Painful or difficulty urinating -Feelings of extreme sadness or anxiety after 2 weeks Goals to Promote Your Health * To prevent worsening of your condition and complications * To maintain your health at the optimal level Directions to Meet Your Goals Take your medications as prescribed Follow your dietary instruction Follow activity as directed Ensure plenty of rest for recovery Drink fluids for hydration Keep your appointments as scheduled Take your immunizations and boosters as scheduled If your symptoms worsen call your PCP, if no PCP go to Urgent Care Center or Emergency Room Smoking is Dangerous to Your Health. Avoid second hand smoke Call the 24-hour crisis hotline for domestic abuse at Ronny Pantoja MD R2 Aug 25, 2017 08:20
[2017-08-25 09:15] VITALS: BP 98/58; PULSE 87; RESP 18; TEMP 97.8
--- NOTE | 2017-08-25 10:43 | HHI.OB ---
Subjective Post Day: 2 Remarks Pt seen and examined this morning. day # 2 AFVSS overnight. Decreased lochia. Denies dysuria. No breast tenderness. She is feeding the baby via breast. Appetite good. No nausea or vomiting. Patient has not yet had a bowel movement, but does endorse bowel gas. Ambulating well. Denies calf pain or shortness of breath. Otherwise, she is doing well this morning and has no other concerns. Objective Vitals/I&O Vital Signs Date Time Temp Pulse Resp B/P (MAP) Pulse Ox O2 Delivery O2 Flow Rate FiO2 08/25/17 09:15 98/58 (71) 08/25/17 09:15 97.8 87 18 08/25/17 01:40 16 08/25/17 01:40 16 08/24/17 20:00 97.4 67 20 81/47 (58) 98 Objective Remarks GENERAL: Well-nourished, well-developed patient. CARDIOVASCULAR: Regular rate and rhythm without murmurs, gallops, or rubs. RESPIRATORY: Breath sounds equal bilaterally. No accessory muscle use. ABDOMEN/GI: Abdomen soft, non-tender. Fundus: Firm, non-tender at umbilicus. GENITOURINARY: Light to moderate bleeding. EXTREMITIES: No cyanosis or edema, non-tender, without signs of DVT. Medications and IVs Current Medications Medications (Trade) Dose Ordered Sig/Eileen Route Start Time Stop Time Status Last Admin Oxytocin 500 ml @ 0 mls/hr TITRATE IV 08/23/17 11:30 08/23/17 13:04 (NS Flush) 2 ml BID IV FLUSH 08/23/17 21:00 (NS Flush) 2 ml UNSCH PRN IV FLUSH 08/23/17 15:30 (Tylenol) 650 mg Q4H PRN PO 08/23/17 15:30 08/25/17 00:29 (Motrin) 800 mg Q8H PRN PO 08/23/17 15:30 08/25/17 07:02 (Percocet 5-325 Mg) 1 tab Q4H PRN PO 08/23/17 15:30 08/25/17 06:20 (Percocet 5-325 Mg) 2 tab Q4H PRN PO 08/23/17 15:30 (Americaine 20% Top Spr) 1 spray Q4H PRN TOPICAL 08/23/17 15:30 08/23/17 17:23 (Tucks Pads) 1 applic QID PRN TOPICAL 08/23/17 15:30 08/23/17 17:23 (Viji-Colace) 2 tab Q12H PRN PO 08/23/17 15:30 08/24/17 14:20 (Ambien) 5 mg HS PRN PO 08/23/17 15:30 (Mag-Al Plus Susp Liq) 15 ml Q8H PRN PO 08/23/17 15:30 (Zofran Odt) 4 mg Q6H PRN PO 08/23/17 15:30 08/23/17 17:15 (Proctofoam Hc Rectal Foam) 1 applic Q8H PRN RECTAL 08/24/17 18:00 08/25/17 06:20 Assessment/Plan Assessment and Plan 37 y/o female who is day 2 s/p -Continue routine care. -Motrin PRN pain. -Encouraged OOB. Advised pelvic rest for 6 wks. -Re: ctrl, she would like to continue considering her options. -D/c today, 08/25 DW: Ronny Ann MD R2 Aug 25, 2017 10:43
== END 2017-08-25 14:45 | disposition home or self-care (01) | DRG 775 ==
LOC: HOBED 05:46 → H2EA 08:14 → H1EA 16:55
PROVIDERS: ADMIT Obstetrics & Gynecology; ATTEND Obstetrics & Gynecology
PROC: 10E0XZZ Delivery of Products of Conception, External Approach (ICD-10-PCS; principal; 2017-08-23)
PROC: 00HU33Z Insertion of Infusion Device into Spinal Canal, Percutaneous Approach (ICD-10-PCS; 2017-08-23)
PROC: 3E0R3BZ Introduction of Anesthetic Agent into Spinal Canal, Percutaneous Approach (ICD-10-PCS; 2017-08-23)
DX: O26.53 Maternal hypotension syndrome, third trimester (principal); Z37.0 Single live birth; Z3A.39 39 weeks gestation of pregnancy
CPT/HCPCS: 59025; 80307; 81001; 85025; 86592; 90715; J2590; J7120